=== PATIENT | male | born 1970 | race Caucasian/White ===

== ENCOUNTER 2019-11-06 11:03 | Emergency (ER) | payer OTHER ==
[~2019-11-06] VITALS: Ht 172.7 cm; Wt 94.1 kg
[2019-11-06 11:06] VITALS: Ht 172.7 cm; Wt 94.1 kg
[2019-11-06] MEDS ORDERED: LIPITOR10 MG PO (11:07)
[2019-11-06] MEDS ORDERED: BAYER CHEWABLE81 MG PO (11:07)
[2019-11-06] MEDS ORDERED: DEPO-TESTOSTERONE (11:08)
[2019-11-06] MEDS ORDERED: PROZAC20 MG PO (11:08)
[2019-11-06] MEDS ORDERED: ELIQUIS5 MG PO (11:08)
[2019-11-06] MEDS ORDERED: FLOMAX0.4 MG PO (11:09)
[2019-11-06] MEDS ORDERED: HYDROCODON-ACET15 ML PO (11:09)
[2019-11-06] MEDS ORDERED: ATIVAN0.5 MG PO (11:09)
[2019-11-06] MEDS ORDERED: LOPID600 MG PO (11:09)
[2019-11-06 11:37] LABS: BASOPHILS 0.2 % (0-2); EOSINOPHILS 5.9 % (0-7); HEMATOCRIT 53.3 % (42.0-54.0); HEMOGLOBIN 18.4 g/dL (13.5-17.5); IMMATURE GRANULOCYTES 0.3 % (0-5); LYMPHOCYTES 17.3 % (15-50); MCH 31.9 pg (26.0-34.0); MCHC 34.5 g/dL (31.0-37.0); MCV 92.4 fL (80.0-100.0); MEAN PLATELET VOLUME 9.7 fL (7.4-10.4); MONOCYTES 15.5 % (2-11); NEUTROPHILS 60.8 % (40-80); PLATELET COUNT 200 10x3/uL (130-400); RBC 5.77 10x6/uL (4.20-6.10); RDW 12.5 % (11.5-14.5); WBC 6.1 10x3/uL (4.8-10.8)
[2019-11-06 11:40] LABS: CALC OSMOLALITY 267 mosm/kg (275-300); CALCIUM 8.7 mg/dL (8.5-10.1); CHLORIDE - SERUM 102 mmol/L (98-107); CREATININE - SERUM 1.6 mg/dL (0.6-1.3); GLUCOSE 96 mg/dL (74-106); POTASSIUM - SERUM 4.6 mmol/L (3.5-5.1); SODIUM 134 mmol/L (136-145); UREA NITROGEN 13 mg/dL (7-18); eGFR NON AFRICAN AMERICAN 49 mL/min (90-120)
[2019-11-06 11:41] LABS: APTT 30.1 SECONDS (22.8-39.4); PROTIME 13.2 SECONDS (11.6-15.0)
[2019-11-06 11:57] LABS: ALBUMIN 3.7 g/dL (3.4-5.0); ALKALINE PHOSPHATASE 58 U/L (30-120); ALT (SGPT) 37 U/L (10-68); BILIRUBIN - TOTAL 0.69 mg/dL (0.2-1.3); CREATINE KINASE 164 UL (21-232); MAGNESIUM - SERUM 2.1 mg/dL (1.8-2.4); PROTEIN - SERUM 7.7 g/dL (6.4-8.2)
[2019-11-06 12:00] LABS: TROPONIN-I < 0.017 ng/mL (0.000-0.060)
[2019-11-06 14:00] VITALS: BP 132/71
== END 2019-11-06 14:01 | disposition home or self-care (01) ==
LOC: D.ER 11:03
PROVIDERS: Family Medicine
DX: R07.9 Chest pain, unspecified (principal); I10 Essential (primary) hypertension